=== PATIENT | male | born 1995 | race African-American/Black ===

== ENCOUNTER 2017-06-28 06:50 | Emergency (ER) | payer MEDICAID ==
[~2017-06-28] VITALS: Ht 185.4 cm; Wt 100.0 kg
[2017-06-28] MEDS ORDERED: HYDROCODONE/ACETAMINOPHEN 5/325MG TABLET PO ONE (08:00)
[2017-06-28] MEDS ORDERED: LIDOCAINE HCL 1% 20ML VIAL (Pyxis) INJ INFIL ONE (09:15)
[2017-06-28 10:15] VITALS: BP 129/77
== END 2017-06-28 10:44 | disposition home or self-care (01) ==
LOC: ER 06:50
DX: S63.285A Dislocation of proximal interphalangeal joint of left ring finger, initial encounter (principal); S80.02XA Contusion of left knee, initial encounter; M79.642 Pain in left hand; V49.9XXA Car occupant (driver) (passenger) injured in unspecified traffic accident, initial encounter; Y93.51 Activity, roller skating (inline) and skateboarding; Y99.8 Other external cause status; Y92.410 Unspecified street and highway as the place of occurrence of the external cause
CPT/HCPCS: 26770; 73130; 73560; 99284; J3490; Z7610